=== PATIENT | female | born 1985 | race Caucasian/White ===

== ENCOUNTER 2023-05-29 20:19 | Emergency (ER) | payer OTHER ==
[~2023-05-29] VITALS: Ht 160 cm; Wt 86.4 kg
[~2023-05-29 20:19] MED LIST: ALDOMET 250MG250 MG PO; CEPHALEXIN500 M1 PO; CLARITIN 1010 MG/TAB PO; FLAGYL500 MG PO; LEVEMIR FLEXPEN SQ; LEVEMIR100 U/ML SC; NAPROSYN500 MG PO; NORCO 325 MG-51 TAB PO; PRENATAL VITAMI1 TA5 PO; PROTONIX 40MG T40 MG PO; PROVERA 10MG10 MG PO; ULTRAM 50MG TAB50 MG PO; ZOFRAN 4MG T4 MG/TAB PO; ZYRTEC 10MG10 MG PO
[2023-05-29 20:27] VITALS: TEMP 98.2
[2023-05-29] MEDS ORDERED: Ketorolac 30 MG/ML VIAL IV ONE (21:15)
[2023-05-29] MEDS ORDERED: Magnesium Sulfate 4% 50 ML IV ONE (21:15)
[2023-05-29] MEDS ORDERED: NS 500 ML IV ONE (21:15)
[2023-05-29] MEDS ORDERED: diphenhydrAMINE 50 MG/ML 1 ML VIAL IV ONE (21:15)
[2023-05-29 21:18] LABS: BASO # 0.1 K/mm3 (0.0-0.2); BASO % 0.5 % (0.0-2.0); EOS # 0.6 K/mm3 (0.0-0.7); EOS % 5.4 % (0.0-4.0); GRAN # 5.1 K/mm3 (1.4-6.5); GRAN % 48.4 % (42.2-75.2); HEMATOCRIT 43.4 % (37.0-47.0); LYMPH % 38.3 % (20.0-51.0); MEAN CELL VOLUME 94 fl (80.0-100.0); MEAN CORPUSCULAR HEMOGLOBIN 33 pg (27-31); MEAN CORPUSCULAR HGB CONC 35 g/dl (33.0-37.0); MEAN PLATELET VOLUME 9.5 fl (7.4-10.4); MONO # 0.8 K/mm3 (0.1-0.6); MONO % 7.2 % (1.7-9.3); PLATELET COUNT 305 K/mm3 (130-400); RED BLOOD COUNT 4.61 M/mm3 (4.10-5.30); REDCELL DISTRIBUTION WIDTH-CV 11.9 % (11.5-14.5)
[2023-05-29 21:28] LABS: CALCIUM 9.6 mg/dL (8.4-10.2); CREATININE, serum 0.85 mg/dL (0.57-1.11); POTASSIUM 3.7 mmol/L (3.5-4.5)
[2023-05-29 23:10] LABS: COLLECTION METHOD CLEAN CATCH
[2023-05-29 23:21] LABS: URINE APPEARANCE Clear (CLEAR/HAZY); URINE BLOOD Negative (NEGATIVE); URINE COLOR Yellow (YELLOW); URINE GLUCOSE Negative (NEGATIVE); URINE KETONE TRACE (NEGATIVE); URINE NITRATE Negative (NEGATIVE); URINE PROTEIN(semi-quant) Negative (NEGATIVE)
[2023-05-29 23:25] LABS: MUCOUS Present (NOT PRESENT); URINE BACTERIA Rare /hpf (NONE SEEN); URINE RBC None Seen /hpf (0-2)
[2023-05-30] MEDS ORDERED: ANTIVERT 25MG25 MG PO (00:44)
[2023-05-30 00:46] VITALS: BP 106/59; PULSE 66
== END 2023-05-30 00:53 | disposition home or self-care (01) ==
LOC: COL.ER 20:19
PROVIDERS: Internal Medicine
DX: G43.109 Migraine with aura, not intractable, without status migrainosus (principal); E86.0 Dehydration; R42 Dizziness and giddiness
CPT/HCPCS: J1200; J1885; J2765; J3475; J7040